=== PATIENT | female | born 1975 | race Caucasian/White ===

== ENCOUNTER 2019-10-03 22:05 | Emergency (ER) | payer OTHER ==
[~2019-10-03] VITALS: Ht 180.3 cm; Wt 72.2 kg
[~2019-10-03 22:05] MED LIST: METH10TA2 PO; VOLTARAN PO
--- NOTE | 2019-10-03 22:57 | NUR ---
REPORT GIVEN TO JOSIE CASON.
[2019-10-03 23:06] LABS: MICROSCOPIC NOT IND
[2019-10-03 23:07] LABS: CULTURE INDICATED? NO
[2019-10-03 23:33] LABS: BASOPHILS # (AUTO) 0.01 x10^3/uL (0-0.1); BASOPHILS % (AUTO) 0 % (0-1); EOSINOPHILS # (AUTO) 0.02 x10^3/uL (0-0.4); EOSINOPHILS % (AUTO) 1 % (1-7); LYMPHOCYTES % (AUTO) 33 % (22-44); MD NO; MEAN CORPUSCULAR HEMOGLOBIN 30.3 pg (27.0-34.8); MEAN CORPUSCULAR HGB CONC 32.9 g/dL (32.4-35.8); MEAN CORPUSCULAR VOLUME 92.3 fL (80-100); MEAN PLATELET VOLUME 8.6 fL (7.4-10.4); MONOCYTES % (AUTO) 8 % (2-9); NEUTROPHILS # (AUTO) 2.86 x10^3/uL (1.8-6.8); NEUTROPHILS % (AUTO) 58 % (42-75); PLATELET COUNT 253 x10^3/uL (130-400); RED BLOOD COUNT 4.03 x10^6/uL (3.82-5.3); RED CELL DISTRIBUTION WIDTH 14.7 % (9.6-15.2)
[2019-10-03 23:38] LABS: ALANINE AMINOTRANSFERASE 17 U/L (12-78); ALBUMIN 4.1 g/dL (3.4-5.0); ANION GAP 5 mmol/L (5-15); CALCIUM 9.5 mg/dL (8.5-10.1); CHLORIDE 108 mmol/L (98-107)
[2019-10-03 23:42] LABS: ALKALINE PHOSPHATASE 31 U/L (45-117); BILIRUBIN,TOTAL 0.4 mg/dL (0.2-1.0); TOTAL PROTEIN 7.6 g/dL (6.4-8.2)
[2019-10-04] VITALS: BP 128/72
== END 2019-10-04 00:02 | disposition home or self-care (01) ==
LOC: ED 23:14
DX: K29.00 Acute gastritis without bleeding (principal); R94.31 Abnormal electrocardiogram [ECG] [EKG]
CPT/HCPCS: 36415; 71045; 80053; 81003; 83690; 84703; 85025; 93005; 99285

== ENCOUNTER 2020-01-27 09:43 | Outpatient (CLI) | payer OTHER ==
[2020-01-27] MEDS ORDERED: [UNRECOGNIZED DRUG - OTHER] PO (10:33)
[2020-01-27] MEDS ORDERED: OMEP20TA62 PO (10:33)
[2020-01-27] MEDS ORDERED: OXYC10TA47 PO (10:33)
[2020-01-27] MEDS ORDERED: DIGESTIVE ENZYMES PO (10:33)
[2020-01-27] MEDS ORDERED: OXYC5CAP2 PO (10:33)
== END 2020-01-27 23:59 | disposition home or self-care (01) ==
LOC: STAR 09:43
PROVIDERS: ATTEND Specialist
DX: Z02.9 Encounter for administrative examinations, unspecified (principal)

== ENCOUNTER → 2020-01-30 | Outpatient (CLI) | payer OTHER ==
[~2020-01-30] MED LIST changes: +DIGESTIVE ENZYMES PO; +HYDR4TAB48 PO; +LORA-445 PO; +OMEP20TA62 PO; +OXYC10TA47 PO; +OXYC5CAP2 PO; +[UNRECOGNIZED DRUG - OTHER] PO
== END | disposition home or self-care (01) ==
LOC: STAR 15:08
PROVIDERS: ATTEND Anesthesiology
DX: Z01.812 Encounter for preprocedural laboratory examination (principal); Z20.828 Contact with and (suspected) exposure to other viral communicable diseases
CPT/HCPCS: 36415; 87635

== ENCOUNTER 2020-02-03 07:42 | Day surgery (SDC) | payer OTHER ==
[~2020-02-03] VITALS: Ht 177.8 cm; Wt 65.3 kg
[~2020-02-03 07:42] MED LIST changes: -HYDR4TAB48 PO; -LORA-445 PO
[2020-02-03 08:08] LABS: HCG UR SG 1.022 (1.003-1.030)
[2020-02-03] MEDS ORDERED: CHLORHEXIDINE 15 ML UDC MM STA (08:17)
[2020-02-03] MEDS ORDERED: LACTATED RINGERS 1,000 ML IV ONE (08:17)
[2020-02-03 08:18] VITALS: BP 119/80
[2020-02-03] MEDS ORDERED: LORA-445 PO (09:22)
[2020-02-03] MEDS ORDERED: HYDR4TAB48 PO (09:22)
[2020-02-03] MEDS ORDERED: PROCHLORPERAZINE 5 MG/ML, 2ML IVPush ONE (10:00)
[2020-02-03] MEDS ORDERED: FENTANYL PF 250 MCG/5ML ONE (10:00)
[2020-02-03] MEDS ORDERED: ROCURONIUM 10MG/ML,5ML ONE (10:01)
[2020-02-03] MEDS ORDERED: PROPOFOL 10 MG/ML, 20ML ONE (10:01)
[2020-02-03] MEDS ORDERED: LIDOCAINE-MPF 2% ,5ML ONE (10:01)
[2020-02-03] MEDS ORDERED: MIDAZOLAM 1 MG/ML, 2ML ONE (10:04)
[2020-02-03] MEDS ORDERED: BUPIVACAINE/PF 0.25% ONE ×2 (10:04→12:06)
[2020-02-03] MEDS ORDERED: NEOSTIGMINE 1 MG/ML, 10ML ONE (10:12)
[2020-02-03] MEDS ORDERED: GLYCOPYRROLATE 0.2MG/1ML, 5ML ONE (10:12)
[2020-02-03] MEDS ORDERED: CLINDAMYCIN 150 MG/ML, 6ML ONE (10:18)
[2020-02-03] MEDS ORDERED: DEXAMETHASONE 4 MG/ML, 1ML ONE ×2 (10:22)
[2020-02-03] MEDS ORDERED: OXYcodone 5 MG/5 ML ORAL.SOL UDC PO PRN (10:30)
[2020-02-03] MEDS ORDERED: HYDROmorphone 1 MG/ML, 1ML INJ IVPush PRN (10:30)
[2020-02-03] MEDS ORDERED: HYDROcodone/APAP 7.5-325MG/15ML UDC PO PRN (10:30)
[2020-02-03] MEDS ORDERED: NEOMY/POLYMYXIN B GU IRR. 1 ML IRRIG ONE (10:53)
[2020-02-03] MEDS ORDERED: NEOMY/POLYMYXIN B GU IRR. 1 ML ONE (11:02)
[2020-02-03] MEDS ORDERED: SODIUM CHLORIDE 0.9% PF 10ML ONE ×3 (11:41)
[2020-02-03] MEDS ORDERED: EPINEPHRINE 1 MG/ML, 1ML INFIL ONE (11:48)
[2020-02-03] MEDS ORDERED: EPINEPHRINE 1 MG/ML, 1ML ONE (12:07)
[2020-02-03] MEDS ORDERED: PROCHLORPERAZINE 5 MG/ML, 2ML ONE (13:09)
[2020-02-03] MEDS ORDERED: FENTANYL PF 100 MCG/2ML ONE ×2 (13:10→13:56)
[2020-02-03] MEDS: FENTANYL PF 100 MCG/2ML IV PRN ×5 (13:13→14:08)
[2020-02-03] MEDS ORDERED: OXYcodone 5 MG/5 ML ORAL.SOL UDC ONE (13:56)
== END 2020-02-03 18:37 | disposition home or self-care (01) ==
LOC: OUT 07:42
PROVIDERS: ATTEND Specialist
DX: N81.4 Uterovaginal prolapse, unspecified (principal); N92.0 Excessive and frequent menstruation with regular cycle; N81.6 Rectocele; N88.8 Other specified noninflammatory disorders of cervix uteri; M79.7 Fibromyalgia; K21.9 Gastro-esophageal reflux disease without esophagitis; F41.9 Anxiety disorder, unspecified; F31.9 Bipolar disorder, unspecified; F25.8 Other schizoaffective disorders; Z90.49 Acquired absence of other specified parts of digestive tract; F17.210 Nicotine dependence, cigarettes, uncomplicated; F19.10 Other psychoactive substance abuse, uncomplicated; Z88.0 Allergy status to penicillin; Z88.1 Allergy status to other antibiotic agents; Z88.8 Allergy status to other drugs, medicaments and biological substances; Z79.899 Other long term (current) drug therapy; Z98.890 Other specified postprocedural states
CPT/HCPCS: 57265; 57283; 58571; 81025; 88305; J0171; J0780; J1100; J2250; J2704; J2710; J3010; J3490; J7120; S2900